=== PATIENT | female | born 1965 | race Caucasian/White ===

== ENCOUNTER 2017-05-04 15:55 | Outpatient (CLI) | payer BC | END 2017-05-04 15:56 | disposition home or self-care (01) | LOC: BICULT 15:55 | PROVIDERS: ATTEND Family Medicine | DX: E04.9 Nontoxic goiter, unspecified (principal); E04.2 Nontoxic multinodular goiter | CPT/HCPCS: 76536 ==

== ENCOUNTER 2020-09-13 08:59 | Outpatient (CLI) | payer BC | END 2020-09-13 09:00 | disposition home or self-care (01) | LOC: BICMAMMO 08:59 | PROVIDERS: ATTEND Family Medicine | DX: Z12.31 Encounter for screening mammogram for malignant neoplasm of breast (principal); Z80.3 Family history of malignant neoplasm of breast | CPT/HCPCS: 77063; 77067 ==

== ENCOUNTER 2020-09-13 09:12 | Outpatient (CLI) | payer BC | END 2020-09-13 09:13 | disposition home or self-care (01) | LOC: BICCT 09:12 | PROVIDERS: ATTEND Family Medicine | DX: Z12.2 Encounter for screening for malignant neoplasm of respiratory organs (principal); F17.210 Nicotine dependence, cigarettes, uncomplicated | CPT/HCPCS: 71271 ==

== ENCOUNTER 2021-10-08 08:59 | Outpatient (CLI) | payer BC | END 2021-10-08 09:00 | disposition home or self-care (01) | LOC: BICMAMMO 08:59 | PROVIDERS: ATTEND Family Medicine | DX: Z12.31 Encounter for screening mammogram for malignant neoplasm of breast (principal); Z80.3 Family history of malignant neoplasm of breast | CPT/HCPCS: 77063; 77067 ==

== ENCOUNTER 2022-10-31 10:05 | Outpatient (CLI) | payer BC | END 2022-10-31 10:06 | disposition home or self-care (01) | LOC: BICMAMMO 10:05 | PROVIDERS: ATTEND Family Medicine | DX: Z12.31 Encounter for screening mammogram for malignant neoplasm of breast (principal); Z80.3 Family history of malignant neoplasm of breast | CPT/HCPCS: 77063; 77067 ==